=== PATIENT | female | born 1970 | race Caucasian/White ===

== ENCOUNTER 2021-03-26 10:44 | Emergency (ER) | payer MEDICARE ==
[2021-03-26] MEDS ORDERED: TYLENOL EXTRA STRENGTH 500 MG PO STA (11:15)
[2021-03-26] MEDS ORDERED: ZOFRAN ODT 4 MG ONE (11:17)
[2021-03-26] MEDS ORDERED: TYLENOL EXTRA STRENGTH 500 MG ONE (11:17)
[2021-03-26] MEDS ORDERED: ZOFRAN ODT 4 MG PO ONE (11:18)
--- NOTE | 2021-03-26 11:26 | ERPHSYRPT ---
- History of Present Illness Time Seen by Provider: 03/26/21 10:45 Source: patient Exam Limitations: no limitations Patient Subjective Stated Complaint: Pt states "I was cutting wood and I slipped and fell backward hitting my head on the concrete, I passed out for a few se conds." Triage Nursing Assessment: Pt presented alert and oriented X 3, skin pwd Pt has hematoma noted to occiput, pt moaning and pinching eyes closed. PT has no other noted injuries. Physician History: 50 years old female with history of coronary artery disease presented in the ER after she slipped and fell backward hitting her occipital area against concrete prior to arrival with questionable loss of consciousness for few seconds. Patient is complaining of moderate intensity headache in the occipital area with swelling and some neck pain without any numbness tingling or focal weakness. Denies any visual disturbance. No difficulty speech. No injury anywhere else. Occurred: just prior to arrival Severity: moderate Head Injury Location: occipital Method of Injury: fell Loss of Consciousness: no loss of consciousness Associated Symptoms: headaches Allergies/Adverse Reactions: codeine Allergy (Intermediate, Verified 03/26/21 11:10) Hives Penicillins Allergy (Intermediate, Verified 03/26/21 11:10) Rash Home Medications: Furosemide [Lasix] 20 mg PO DAILY 03/26/21 [History] Gabapentin [Neurontin] 600 mg PO DAILY 03/26/21 [History] Isosorbide Mononitrate 30 mg [Imdur 30 MG] 30 mg PO DAILY 03/26/21 [History] Metoprolol Succinate 50 mg [Toprol Xl 50 MG] 50 mg PO DAILY 03/26/21 [History] Pravastatin Sodium 40 mg PO DAILY 03/26/21 [History] Ropinirole HCl 3 mg PO DAILY 03/26/21 [History] Hx Tetanus, Diphtheria Vaccination/Date Given: No Hx Influenza Vaccination/Date Given: Yes Hx Pneumococcal Vaccination/Date Given: No Immunizations Up to Date: Yes Travel Risk - International Travel Have you traveled outside of the country in past 3 weeks: No (N) If Yes, where;: N - Coronavirus Screening Are you exhibiting any of the following symptoms?: No Close contact with a COVID-19 positive Pt in past 14-21 Days: No - Vaccine Status Have you recieved a Covid-19 vaccination: No - Review of Systems Constitutional: No Symptoms Eyes: No Symptoms Ears, Nose, & Throat: No Symptoms Respiratory: No Symptoms Cardiac: No Symptoms Abdominal/Gastrointestinal: No Symptoms Genitourinary Symptoms: No Symptoms Musculoskeletal: Neck Pain Skin: No Symptoms Neurological: Headache Psychological: No Symptoms Endocrine: No Symptoms Hematologic/Lymphatic: No Symptoms Immunological/Allergic: No Symptoms - Past Medical History Pertinent Past Medical History: Yes Cardiac History: High Cholesterol, Hypertension, Other Other Medical History: quintuple bypass. heart cath - Past Surgical History Past Surgical History: Yes Cardiac: CABG, Cardiac Stent - Social History Smoking Status: Never smoker Exposure to second hand smoke: No Drug Use: none Patient Lives Alone: No - Female History Hx Now: No - Nursing Vital Signs Nursing Vital Signs: Initial Vital Signs Temperature 97.8 F 03/26/21 11:04 Pulse Rate 66 03/26/21 11:04 Respiratory Rate 20 03/26/21 11:04 Blood Pressure 137/57 03/26/21 11:04 O2 Sat by Pulse Oximetry 100 03/26/21 11:04 Pain Scale Pain Intensity 2 - Anisa Coma Score Best Eye Response (Register): (4) open spontaneously Best Verbal Response (Anisa): (5) oriented Best Motor Response (Register): (6) obeys commands Anisa Total: 15 - Physical Exam General Appearance: no apparent distress, alert Head Injury: contusions, swelling, tenderness (occipital ) Eye Exam: bilateral eye: normal inspection, PERRL, EOMI ENT Exam: airway nml, No evidence of ENT injury, No dental injury Neck Exam: supple, trachea midline, normal alignment, normal inspection, c- collar in place Cardiovascular/Respiratory Exam: chest non-tender, normal breath sounds, regular rate/rhythm Gastrointestinal/Abdominal Exam: soft Back Exam: normal inspection, normal range of motion Extremity Exam: non-tender, normal range of motion, normal inspection, normal capillary refill Mental Status Exam: alert, oriented x 3, cooperative 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 Exam: normal hearing Coordination/Gait Exam: normal finger to nose, normal gait Motor/Sensory Exam: no motor deficit, no sensory deficit, no pronator drift, negative Babinski's sign DTR Exam: bicep (R): 2+, bicep (L): 2+, knee (R): 2+, knee (L): 2+ Skin Exam: normal color SpO2 Interpretation: normal SpO2: 100 O2 Delivery: Room Air Ordered Tests: Active Orders 24 hr Category Date Time Status CERVICAL SPINE WO CONTRAST [CT] Stat Exams 03/26/21 11:14 Taken HEAD WITHOUT CONTRAST [CT] Stat Exams 03/26/21 11:14 Taken Medication Summary Discontinued Medications Generic Name Dose Route Start Last Admin Trade Name Fallon PRN Reason Stop Dose Admin Acetaminophen 1,000 mg 03/26/21 11:15 03/26/21 11:18 Acetaminophen 500 Mg Tablet PO 03/26/21 11:16 1,000 mg STAT STA Administration Acetaminophen Confirm 03/26/21 11:17 Acetaminophen 500 Mg Tablet Administered 03/26/21 11:18 Dose 1,000 mg .ROUTE .STK-MED ONE Meclizine HCl 25 mg 03/26/21 13:23 03/26/21 13:29 Meclizine Hcl 25 Mg Tablet PO 03/26/21 13:24 25 mg STAT ONE Administration Meclizine HCl Confirm 03/26/21 13:29 Meclizine Hcl 25 Mg Tablet Administered 03/26/21 13:30 Dose 25 mg .ROUTE .STK-MED ONE Ondansetron HCl 4 mg 03/26/21 11:18 03/26/21 11:19 Zofran 4 Mg/Udtablet Orally Disintegrating PO 03/26/21 11:19 4 mg STAT ONE Administration Ondansetron HCl Confirm 03/26/21 11:17 Zofran 4 Mg/Udtablet Orally Disintegrating Administered 03/26/21 11:18 Dose 4 mg .ROUTE .STK-MED ONE Oxycodone/Acetaminophen 1 tab 03/26/21 12:51 03/26/21 12:55 Oxycodone / Apap 10/325 Mg 1 Tablet PO 03/26/21 12:52 1 tab STAT STA Administration Oxycodone/Acetaminophen Confirm 03/26/21 12:54 Oxycodone / Apap 10/325 Mg 1 Tablet Administered 03/26/21 12:55 Dose 1 tab .ROUTE .STK-MED ONE - Progress Progress: improved Progress Note: 03/26/21 13:42 50 years old is evaluated for fall with occipital hematoma with headache and some neck pain. C-collar is applied. She has a nonfocal neuro exam throughout stay in the ER. CT head and cervical spine are negative for any acute trauma related findings. C-collar is removed and patient is able to move her neck in all directions without any limitations. Patient does have a positive loss of consciousness and is feeling dizzy with room spinning sensation. She is given meclizine and symptomatic treatment for headache. On reevaluation feeling better. I believe patient has a concussion, given instructions and recommended outpatient follow-up. Discussed signs symptoms of worsening needing return to ER which she seems understanding. Stable for discharge. Counseled pt/family regarding: diagnosis, need for follow-up, rad results - Departure Departure Disposition: Home Clinical Impression: Concussion Qualifiers: Encounter type: initial encounter Loss of consciousness presence/duration: with LOC of 30 min or less Qualified Code(s): S06.0X1A - Concussion with loss of consciousness of 30 minutes or less, initial encounter Contusion of occipital region of scalp Qualifiers: Encounter type: initial encounter Qualified Code(s): S00.03XA - Contusion of scalp, initial encounter Fall Qualifiers: Encounter type: initial encounter Qualified Code(s): W19.XXXA - Unspecified fall, initial encounter Condition: Stable Critical Care Time: No Referrals: DOCTOR,NO FAMILY [Primary Care Provider] - Follow up/PCP as directed ESA RASHEED [ACTIVE STAFF] - Follow up/PCP as directed (In 2 days for reevaluation) Instructions: Concussion, Adult (DC), Closed Head Injury (DC) Additional Instructions: Follow head injury/concussion instructions and return to ER for worsening dizziness or if having numbness tingling focal weakness, intractable headache/vomiting or if not acting herself. Stay with responsible person for next 48 hours with frequent neurochecks. Take Tylenol only for headache and no ibuprofen for at least 36 hours. Prescriptions: Meclizine HCl 25 mg [Antivert 25 mg] 25 mg PO Q8HPRN PRN #12 tablet PRN Reason: Dizziness Ondansetron ODT 4 MG [Zofran Odt 4 mg] 1 ea PO QIDPRN PRN #7 tablet PRN Reason: n/v
[2021-03-26] MEDS ORDERED: OXYCODONE-ACETAMINOPHEN 10-325 PO STA (12:51)
[2021-03-26] MEDS ORDERED: OXYCODONE-ACETAMINOPHEN 10-325 ONE (12:54)
[2021-03-26] MEDS ORDERED: ANTIVERT 25 MG PO ONE (13:23)
[2021-03-26] MEDS ORDERED: ANTIVERT 25 MG ONE (13:29)
[2021-03-26 14:16] VITALS: BP 104/68; PULSE 52
[2021-03-26 14:21] VITALS: O2SAT 100
--- NOTE | 2021-03-26 19:26 | XRAY ---
Indication: Posterior head injury with loss of consciousness following fall. Multiple contiguous axial images obtained through the head without contrast. Comparison: None Age-appropriate global atrophy. Left basal ganglia demonstrates 1 cm remote infarct. No acute intracranial hemorrhage, abnormal extra-axial fluid collection, or mass effect. Fourth ventricle is midline without hydrocephalus. Bony calvarium intact. Visualized paranasal sinuses and mastoid air cells are clear. 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 No acute intracranial abnormalities. Comment: Preliminary interpretation made by [facility]. No critical discrepancy.
--- NOTE | 2021-03-26 19:28 | XRAY ---
Indication: Posterior head injury with loss of consciousness following fall. Multiple contiguous axial images obtained through the cervical spine. Sagittal and coronal reformatted images obtained. Comparison: None Axial images negative for acute fracture, suspicious bony lesions, or spinal canal stenosis. Minimal/mild C4-C7 degenerative endplate spurring. Additional mild atlantoaxial degenerative changes. Sagittal and coronal reformatted images demonstrates lordotic straightening, positional versus paraspinal spasm. Minimal C4-C6 disc space narrowing. No acute compression fracture, subluxation, or jumped facet. Normal appearing craniocervical junction. Visualized noncontrasted soft tissues including lung apices are unremarkable. Impression: 1. Negative acute fracture/subluxation. 2. Cervical lordotic straightening, positional versus paraspinal spasm. 3. C4-C7 degenerative changes. Comment: Preliminary interpretation made by C. No critical discrepancy.
== END 2021-03-26 14:43 | disposition home or self-care (01) ==
LOC: ED 10:44
DX: S06.0X1A Concussion with loss of consciousness of 30 minutes or less, initial encounter (principal); S00.03XA Contusion of scalp, initial encounter; W01.0XXA Fall on same level from slipping, tripping and stumbling without subsequent striking against object, initial encounter; E78.5 Hyperlipidemia, unspecified; I10 Essential (primary) hypertension
CPT/HCPCS: 70450; 72125; 99284; L0172; Q0162; A9270-GY

== ENCOUNTER 2021-06-27 09:22 | Emergency (ER) | payer MEDICARE, BC ==
--- NOTE | 2021-06-27 09:56 | ERPHSYRPT ---
- History of Present Illness Time Seen by Provider: 06/27/21 09:40 Source: patient Patient Subjective Stated Complaint: Left shoulder pain Triage Nursing Assessment: Patient ambulated back to ED and transferred self to bed. Patient A+O X3. Patient's skin pink, warm and dry. Patient complains of left sided neck pain that radiates down left shoulder down into left arm for 4 weeks 12/19. Patient states she has been seeing a chiropractor with no relief. Patient denies recent injury or trauma to area. Physician History: Patient is a 51-year-old female presents to our ED for evaluation of left shoulder pain. Patient has been experiencing left shoulder pain for approximately 1 month. Pain described as an ache that originates at the base of her neck. Pain involves her left upper trapezius and shoulder. Patient has been working with a chiropractor for approximately 4 weeks with no significant relief. No trauma. No fever. Patient has a history of quadruple bypass in 2017. Patient denies chest pain no nausea no vomiting no diaphoresis. Pain reproduced with palpation to the low cervical spine and left upper trapezius. Pain improved with rest. Patient voices no other complaints or concerns at this time. Timing/Duration: week(s) (4 weeks) Severity: moderate (Pain rated 10 out of 10) Modifying Factors: Improves With: movement, other (Palpation and movement reproduce symptoms) Associated Symptoms: denies symptoms (No nausea or vomiting. No shortness of breath. No diaphoresis. No fever. No syncope or weakness), No nausea, No vomiting, No shortness of breath, No chest pain, No fever, No syncope, No weakness Allergies/Adverse Reactions: No Known Drug Allergies Allergy (Unverified 06/27/21 09:32) Home Medications: Furosemide [Lasix] 20 mg PO DAILY 03/26/21 [History] Gabapentin [Neurontin] 600 mg PO DAILY 03/26/21 [History] Isosorbide Mononitrate 30 mg [Imdur 30 MG] 30 mg PO DAILY 03/26/21 [History] Metoprolol Succinate 50 mg [Toprol Xl 50 MG] 50 mg PO DAILY 03/26/21 [History] Pravastatin Sodium 40 mg PO DAILY 03/26/21 [History] Ropinirole HCl 3 mg PO DAILY 03/26/21 [History] Hx Tetanus, Diphtheria Vaccination/Date Given: No Hx Influenza Vaccination/Date Given: Yes Hx Pneumococcal Vaccination/Date Given: No Travel Risk - International Travel Have you traveled outside of the country in past 3 weeks: No - Coronavirus Screening Are you exhibiting any of the following symptoms?: No Close contact with a COVID-19 positive Pt in past 14-21 Days: No - Vaccine Status Have you recieved a Covid-19 vaccination: No - Review of Systems Constitutional: No Symptoms, No Fever, No Chills Eyes: No Symptoms Ears, Nose, & Throat: No Symptoms Respiratory: No Symptoms, No Cough, No Dyspnea Cardiac: No Symptoms, No Chest Pain, No Edema, No Syncope Abdominal/Gastrointestinal: No Symptoms, No Abdominal Pain, No Nausea, No Vomiting, No Diarrhea Genitourinary Symptoms: No Symptoms, No Dysuria Musculoskeletal: No Symptoms, No Back Pain, No Neck Pain Skin: No Symptoms, No Rash Neurological: No Symptoms, No Dizziness, No Focal Weakness, No Sensory Changes Psychological: No Symptoms Endocrine: No Symptoms Hematologic/Lymphatic: No Symptoms Immunological/Allergic: No Symptoms All Other Systems: Reviewed and Negative - Past Medical History Pertinent Past Medical History: Yes Cardiac History: High Cholesterol, Hypertension, Other Other Medical History: quintuple bypass. heart cath - Past Surgical History Past Surgical History: Yes Cardiac: CABG, Cardiac Stent - Social History Smoking Status: Never smoker Exposure to second hand smoke: No Drug Use: none Patient Lives Alone: No - Nursing Vital Signs Nursing Vital Signs: Initial Vital Signs Pulse Rate 91 H 06/27/21 09:32 Respiratory Rate 18 06/27/21 09:32 Blood Pressure 192/96 06/27/21 09:32 O2 Sat by Pulse Oximetry 100 06/27/21 09:32 Pain Scale Pain Intensity 2 - Physical Exam General Appearance: no apparent distress, alert Eye Exam: PERRL/EOMI, eyes nml inspection Ears, Nose, Throat Exam: normal ENT inspection, TMs normal, pharynx normal, moist mucous membranes Neck Exam: normal inspection, non-tender, supple, full range of motion Respiratory Exam: normal breath sounds, lungs clear, airway intact, No respiratory distress Cardiovascular Exam: regular rate/rhythm, normal heart sounds, normal peripheral pulses Gastrointestinal/Abdomen Exam: soft, normal bowel sounds, No tenderness, No mass Back Exam: normal inspection, normal range of motion, No CVA tenderness, No vertebral tenderness Extremity Exam: normal inspection, normal range of motion, pelvis stable Neurologic Exam: alert, oriented x 3, cooperative, normal mood/affect, nml cerebellar function, nml station & gait, sensation nml, No motor deficits Skin Exam: normal color, warm, dry, No rash Lymphatic Exam: No adenopathy SpO2 Interpretation: normal SpO2: 100 O2 Delivery: Room Air - Course Nursing assessment & vital signs reviewed: Yes EKG Interpreted by Me: RATE (83), Sinus Rhythm, NORMAL AXIS, NORMAL INTERVALS - CT Exams Cervical Spine CT Interpretation: Tele-radiologist Report (CT C-spine shows no fractures. C4- C7 degenerative endplate spurring. Atlantoaxial degenerative changes. Lordotic straightening possible spasm. C4-C6 disc space narrowing) Ordered Tests: Active Orders 24 hr Category Date Time Status Build Engineer STAT Care 06/27/21 09:45 Active EKG-ER Only STAT Care 06/27/21 09:44 Active IV Insertion STAT Care 06/27/21 09:44 Active Pulse Oximetry (ED) STAT Care 06/27/21 09:44 Active CERVICAL SPINE WO CONTRAST [CT] Stat Exams 06/27/21 09:58 Completed CBC W DIFF Stat Lab 06/27/21 10:14 Completed CMP Stat Lab 06/27/21 10:14 Completed TROPONIN Q3H Lab 06/27/21 10:14 Completed TROPONIN Q3H Lab 06/27/21 11:46 Completed TROPONIN Q3H Lab 06/27/21 15:45 Ordered TROPONIN Q3H Lab 06/27/21 18:45 Ordered TROPONIN Q3H Lab 06/27/21 21:45 Ordered Medication Summary Discontinued Medications Generic Name Dose Route Start Last Admin Trade Name Freq PRN Reason Stop Dose Admin Dexamethasone Sodium Phosphate 6 mg 06/27/21 10:00 06/27/21 10:06 Dexamethasone Sod Phosphate 10 Mg/Ml IV 06/27/21 10:01 6 mg STAT ONE Administration Dexamethasone Sodium Phosphate Confirm 06/27/21 10:04 Dexamethasone Sod Phosphate 10 Mg/Ml Administered 06/27/21 10:05 Dose 10 mg .ROUTE .STK-MED ONE Morphine Sulfate 4 mg 06/27/21 10:00 06/27/21 10:05 Morphine Sulfate 4 Mg/Ml Injection IV 06/27/21 10:01 4 mg STAT ONE Administration Morphine Sulfate Confirm 06/27/21 10:04 Morphine Sulfate 4 Mg/Ml Injection Administered 06/27/21 10:05 Dose 4 mg .ROUTE .STK-MED ONE Ondansetron HCl 4 mg 06/27/21 10:01 06/27/21 10:05 Ondansetron Hcl 4 Mg/2 Ml Vial IV 06/27/21 10:02 4 mg STAT ONE Administration Ondansetron HCl Confirm 06/27/21 10:04 Ondansetron Hcl 4 Mg/2 Ml Vial Administered 06/27/21 10:05 Dose 4 mg .ROUTE .STK-MED ONE Orphenadrine Citrate 60 mg 06/27/21 11:27 06/27/21 11:29 Orphenadrine Citrate 60 Mg/2 Ml Amp IV 06/27/21 11:28 60 mg STAT ONE Administration Orphenadrine Citrate Confirm 06/27/21 11:29 Orphenadrine Citrate 60 Mg/2 Ml Amp Administered 06/27/21 11:30 Dose 60 mg .ROUTE .STK-MED ONE Lab/Rad Data: Laboratory Result Diagrams 06/27/21 10:14 06/27/21 10:14 Laboratory Results 06/27/21 06/27/21 06/27/21 Range/Units 11:46 10:14 10:14 WBC (4.0-10.5) K/mm3 RBC (4.1-5.4) M/mm3 Hgb (12.0-16.0) gm/dl Hct (35-47) % MCV (78-100) fl MCH (26-32) pg MCHC (32-36) g/dl RDW (11.5-14.0) % Plt Count (150-450) K/mm3 MPV (7.5-11.0) fl Gran % (36.0-66.0) % Eos # (Auto) (0-0.5) Absolute Lymphs (auto) (1.0-4.6) Absolute Monos (auto) (0.0-1.3) Lymphocytes % (24.0-44.0) % Monocytes % (0.0-12.0) % Eosinophils % (0.00-5.0) % Basophils % (0.0-0.4) % Absolute Granulocytes (1.4-6.9) Basophils # (0-0.4) Sodium 136 L (137-145) mmol/L Potassium 4.1 (3.5-5.1) mmol/L Chloride 103 (98-107) mmol/L Carbon Dioxide 25 (22-30) mmol/L Anion Gap 13.0 (5-15) MEQ/L BUN 23 H (7-17) mg/dL Creatinine 0.60 (0.52-1.04) mg/dL Estimated GFR > 60.0 ML/MIN Glucose 99 (74-106) mg/dL Calcium 9.8 (8.4-10.2) mg/dL Total Bilirubin 1.30 (0.2-1.3) mg/dL AST 29 (14-36) U/L ALT 17 (0-35) U/L Alkaline Phosphatase 133 H (38-126) U/L Troponin I < 0.012 < 0.012 (0.000-0.034) ng/mL Serum Total Protein 8.0 (6.3-8.2) g/dL Albumin 4.6 (3.5-5.0) g/dL 06/27/21 Range/Units 10:14 WBC 5.8 (4.0-10.5) K/mm3 RBC 4.33 (4.1-5.4) M/mm3 Hgb 14.0 (12.0-16.0) gm/dl Hct 41.3 (35-47) % MCV 95.4 (78-100) fl MCH 32.3 H (26-32) pg MCHC 33.9 (32-36) g/dl RDW 13.1 (11.5-14.0) % Plt Count 242 (150-450) K/mm3 MPV 10.4 (7.5-11.0) fl Gran % 58.0 (36.0-66.0) % Eos # (Auto) 0.24 (0-0.5) Absolute Lymphs (auto) 1.62 (1.0-4.6) Absolute Monos (auto) 0.50 (0.0-1.3) Lymphocytes % 28.2 (24.0-44.0) % Monocytes % 8.7 (0.0-12.0) % Eosinophils % 4.2 (0.00-5.0) % Basophils % 0.9 (0.0-0.4) % Absolute Granulocytes 3.34 (1.4-6.9) Basophils # 0.05 (0-0.4) Sodium (137-145) mmol/L Potassium (3.5-5.1) mmol/L Chloride (98-107) mmol/L Carbon Dioxide (22-30) mmol/L Anion Gap (5-15) MEQ/L BUN (7-17) mg/dL Creatinine (0.52-1.04) mg/dL Estimated GFR ML/MIN Glucose (74-106) mg/dL Calcium (8.4-10.2) mg/dL Total Bilirubin (0.2-1.3) mg/dL AST (14-36) U/L ALT (0-35) U/L Alkaline Phosphatase (38-126) U/L Troponin I (0.000-0.034) ng/mL Serum Total Protein (6.3-8.2) g/dL Albumin (3.5-5.0) g/dL - Progress Progress: improved Progress Note: Patient reassessed. Pain improved. Due to patient's heart history we performed a cardiac work-up also. Troponin negative x2. EKG shows normal sinus rhythm. Patient has no chest pain. Vital stable. C-spine CT scan shows to space narrowing and some degenerative arthritis. In light of patient's ongoing symptoms we will refer patient to orthopedic clinic. Patient will likely require an MRI of the cervical spine to further evaluate what appears to be a cervical radiculopathy. Plan of care discussed with patient. She agrees to follow-up with orthopedics tomorrow as discussed. She voices no other complaints or concerns at this time. Patient given a left upper extremity sling for comfort. Patient received muscle relaxer Toradol and Decadron for pain control. Portions of this note were created with voice recognition technology. There may be grammatical, spelling, punctuation or sound alike errors 06/27/21 12:21 Patient was given a written prescription for Toradol. 06/27/21 12:27 Counseled pt/family regarding: diagnosis, need for follow-up, rad results - Departure Departure Disposition: Home Clinical Impression: C4-C7 degenerative endplate spurring., C4-C6 disc space narrowing, Atlantoaxial degenerative changes, Cervical spine lordotic straightening, Cervical radiculopathy Condition: Stable Critical Care Time: No Referrals: DOCTOR,NO FAMILY [Primary Care Provider] - Follow up/PCP as directed ANJALI LONG DO [ACTIVE STAFF] - Follow up/PCP as directed Additional Instructions: Discharge/Care Plan JAQUELINE JOHNSON was seen on 06/27/21 in the Emergency Room. The patient was counseled regarding Diagnosis,Lab results, Imaging studies, need for follow up and when to return to the Emergency Room. Prescriptions given: Discharge Note I have spoken with the patient and/or caregivers. I have explained the patient's condition, diagnosis and treatment plan based on the information available to me at this time. I have answered the patient's and/or caregiver's questions and addressed any concerns. The patient and/or caregivers have as good understanding of the patient's diagnosis, condition and treatment plan as can be expected at this point. The vital signs have been stable. The patient's condition is stable and appropriate for discharge from the emergency department. The patient will pursue further outpatient evaluation with the primary care physician or other designated or consulting physician as outlined in the discharge instructions. The patient and/or caregivers are agreeable to this plan of care and follow-up instructions have been explained in detail. The patient and/or caregivers have received these instruction. The patient/and or caregivers are aware that any significant change in condition or worsening of symptoms should prompt an immediate return to this or the closest emergency department or call 911.
[2021-06-27] MEDS ORDERED: DECADRON 10MG INJ. IV ONE (10:00)
[2021-06-27] MEDS ORDERED: MORPHINE SULFATE 4 MG INJ IV ONE (10:00)
[2021-06-27] MEDS ORDERED: Zofran 4 MG/2 ML VIAL IV ONE (10:01)
[2021-06-27] MEDS ORDERED: Zofran 4 MG/2 ML VIAL ONE (10:04)
[2021-06-27] MEDS ORDERED: DECADRON 10MG INJ. ONE (10:04)
[2021-06-27] MEDS ORDERED: MORPHINE SULFATE 4 MG INJ ONE (10:04)
[2021-06-27 10:17] LABS: Absolute Neutrophil Ct (ANC) 3.34 (1.4-6.9); Basophil (Absolute #) 0.05 (0-0.4); Eosinophil % 4.2 % (0.00-5.0); Eosinophil (Absolute #) 0.24 (0-0.5); Hematocrit 41.3 % (35-47); Lymphocyte (Absolute #) 1.62 (1.0-4.6); Lymphocytes % 28.2 % (24.0-44.0); Mean Cell Volume 95.4 fl (78-100); Mean Corpuscular Hemoglobin 32.3 pg (26-32); Mean Corpuscular Hgb Concent. 33.9 g/dl (32-36); Mean Platelet Volume 10.4 fl (7.5-11.0); Monocytes % 8.7 % (0.0-12.0); Platelet Count 242 K/mm3 (150-450); Red Blood Count 4.33 M/mm3 (4.1-5.4); Red Cell Distribution Width 13.1 % (11.5-14.0); White Blood Count 5.8 K/mm3 (4.0-10.5)
--- NOTE | 2021-06-27 10:20 | XRAY ---
Indication: Chronic neck pain and left shoulder pain since falling March 2014. Multiple contiguous axial images obtained through the cervical spine. Sagittal and coronal reformatted images obtained. Comparison: March 26, 2021. Axial images again negative for acute fracture, suspicious bony lesions, or spinal canal stenosis. Stable minimal/mild C4-C7 degenerative endplate spurring and mild atlantoaxial degenerative changes. Sagittal and coronal reformatted images again demonstrate lordotic straightening, positional versus paraspinal spasm. Stable minimal C4-C6 disc space narrowing. No acute compression fracture, subluxation, or jumped facet. Normal appearing craniocervical junction. Visualized noncontrasted soft tissues unremarkable. Base of the brain and lung apices unremarkable. Impression: No change compared to CT cervical spine March 26, 2021 and more recent cervical radiograph June 09, 2021. Stable cervical lordotic straightening and C4-C7 degenerative changes. No new/acute findings.
[2021-06-27 10:37] LABS: ALBUMIN 4.6 g/dL (3.5-5.0); ALKALINE PHOSPHATASE 133 U/L (38-126); BLOOD UREA NITROGEN 23 mg/dL (7-17); CHLORIDE 103 mmol/L (98-107); Calcium 9.8 mg/dL (8.4-10.2); Carbon Dioxide 25 mmol/L (22-30); EST GLOMERULAR FILTRATION RATE > 60.0 ML/MIN; Glucose 99 mg/dL (74-106); Potassium 4.1 mmol/L (3.5-5.1); SGOT/AST 29 U/L (14-36); SGPT/ALT 17 U/L (0-35); SODIUM 136 mmol/L (137-145)
[2021-06-27] MEDS ORDERED: Norflex 60 MG/2 ML IV ONE (11:27)
[2021-06-27] MEDS ORDERED: Norflex 60 MG/2 ML ONE (11:29)
[2021-06-27 12:07] VITALS: PULSE 79
[2021-06-27 13:00] VITALS: BP 160/90; O2SAT 97
== END 2021-06-27 13:10 | disposition home or self-care (01) ==
LOC: ED 09:22
DX: M46.02 Spinal enthesopathy, cervical region (principal); M48.02 Spinal stenosis, cervical region; M47.21 Other spondylosis with radiculopathy, occipito-atlanto-axial region; M48.01 Spinal stenosis, occipito-atlanto-axial region; M25.512 Pain in left shoulder; E78.5 Hyperlipidemia, unspecified; I10 Essential (primary) hypertension; Z95.1 Presence of aortocoronary bypass graft; Z79.899 Other long term (current) drug therapy
CPT/HCPCS: 36000; 36415; 72125; 80053; 84484; 85025; 93005; 93041; 94760; 96374; 96375; 99284; J1100; J2270; J2360; J2405